=== PATIENT | female | born 1995 | race Asian ===

== ENCOUNTER 2021-01-16 01:21 | Emergency (ER) | payer OTHER, SELFPAY ==
[2021-01-16 01:26] VITALS: BP 116/62; PULSE 64; TEMP 36.8; O2SAT 98; BMI 25.3
[2021-01-16 01:56] VITALS: BP 104/57; PULSE 62; RESP 16
[2021-01-16] MEDS: Lidocaine HCl 2 % MPF 5 ML VIAL 10 ML INFILTRATI (01:56)
--- NOTE | 2021-01-16 01:56 | ED.EXTPRO ---
HPI - Extremity Problem General Chief complaint: Extremity Problem Stated complaint: Arm pain Time Seen by Provider: 01/16/21 01:32 Source: patient Mode of arrival: ambulatory Limitations: no limitations History of Present Illness HPI Narrative: Patient comes to the emergency room complaining of left upper arm pain. Patient states that she has localized itching and discomfort for the last 2 months where her Nexplanon was placed. Patient had inserted over 2 years ago. Patient states that she is new to the area, does not have a primary care physician or OBGYN, states she is working on getting an appointment, but has been told that she will not be seen until 2-3 months from now. Patient requesting to have her Nexplanon taken out. Patient denies arm swelling, no numbness or tingling, complaining of a pimple size lesion that has been draining pus Related Data Previous Rx's Medication Instructions Recorded ibuprofen 600 mg PO Q8H PRN #14 tab 01/16/21 levonorgestrel-ethinyl estrad 1 tab PO DAILY #84 tab 01/16/21 [Altavera (28)] sulfamethoxazole-trimethoprim 1 tab PO BID #14 tab 01/16/21 [Bactrim DS] Allergies Allergy/AdvReac Type Severity Reaction Status Date / Time No Known Allergies Allergy Verified 01/16/21 01:25 Review of Systems Review of Systems: Constitutional : No Weight loss, No Fever, No Chills, No Night Sweats, No Fatigue, No Malaise ENT/Mouth : No Hearing loss, No Ear Pain, No Nasal Congestion, No Sinus Pain, No Hoarseness, No sore throat, No Rhinorrhea, No Swallowing Difficulty Eyes: No Eye Pain, No Swelling, No Redness, No Foreign Body, No Discharge, No Vision Changes Cardiovascular : No Chest Pain, No SOB, No Dyspnea on Exertion, No Orthopnea, No Edema, No Palpitations Respiratory : No Cough, No Sputum, No Wheezing, No Smoke Exposure, No Dyspnea Gastrointestinal : No Nausea, No Vomiting, No Diarrhea, No Constipation, No abdominal Pain, No Hematochezia, No Melena Genitourinary : no irregular bleeding, No Dysuria, No Urinary Frequency, No Hematuria, No Urinary Incontinence, No Urgency, No Flank Pain, No Urinary Flow Changes, No Hesitancy Musculoskeletal : Discomfort and the Nexplanon implantation site on the left arm Skin : No Skin Lesions, No rash Neuro : No Weakness, No Numbness, No Paresthesias, No Loss of Consciousness, No Dizziness, No Headache Psych : No Anxiety/Panic, No Depression, No SI/HI/AH/VH, No Social Issues, Heme/Lymph: No Bruising, No Bleeding,No Lymphadenopathy Endocrine : No Polyuria, No Polydipsia, No Temperature Intolerance PMFSH Past Medical History Medical History No known health problems Social History Social History Advance Directives: No Advance Directives Information Provided: No Physical Exam Vital Signs: Vital Signs: Last Vital Signs Temp 98.2 F 01/16/21 01:26 Pulse 62 01/16/21 01:56 Resp 16 01/16/21 01:56 BP 104/57 L 01/16/21 01:56 Pulse Ox 98 01/16/21 01:26 Body Mass Index 25.3 Appearance: Alert. Oriented X3. No acute distress. Eyes: Pupils equal, round and reactive to light. ENT: Pharynx normal. Neck: Normal inspection. Neck supple. No lymph nodes noted. No crepitus CVS: Normal heart rate and rhythm. Pulses normal. Normal S1 and S2 Respiratory: No respiratory distress. Breath sounds normal. No Wheezing. No rales Abdomen: Soft and nontender. No rigidity. No distention. good BS x4 Skin: Skin warm and dry. Normal skin color. Normal skin turgor. Extremities: No lower extremity edema. Left upper arm has palpable Nexplanon, there is a small 2 mm sized lesion draining scant amount of pus Neuro: Oriented X 3. No motor deficit. No sensory deficit. Moving all extermities. No slurred speech. Course Course Course Narrative: I discussed with the patient that once the Nexplanon is off, she will need a different control form. Patient tolerated well the procedure. It seems that the site was starting to get infected, a small amount of pus was drained Oral control pills were sent to the patient's pharmacy, discussed with the patient that it will take 2 weeks for the control to start working. In the meantime she will need to use condom is sexually active to prevent . Procedures Procedure Narrative Procedure Narrative: Patient gave consent for the procedure. Patient was infiltrated with 10 mL of 2% lidocaine with no epinephrine. The Nexplanon tip was fairly deep, an L-shaped incision was done. Approximately 1 cm in size. It was difficult to pull the Nexplanon, very scant amount of pus came out from the superficial skin. Four stitches were applied. Patient's sutures need to be removed in 7-10 days Discharge Plan Discharge Clinical Impression: Nexplanon removal, Abscess Patient Disposition: Home, Self-Care Instructions: Abscess (ED), Removal of Control Implant (DC) Additional Instructions: The stitches need to be removed in 7-10 days. You can come to emergency room, urgent care, or with a new primary care physician. control pills per dispose you to blood clots, if you have any calf pain, chest pain, shortness of breath, please return to emergency room immediately. The pills take approximately 2 weeks to start working. In the meantime you will need barrier contraception such as condom. Please follow-up with your primary care physician tomorrow. If you have any worsening or new symptoms, please return to the emergency room or call 911 Prescriptions: New sulfamethoxazole-trimethoprim [Bactrim DS] 800-160 mg tablet 1 tab PO BID Qty: 14 RF: 0 ibuprofen 600 mg tablet 600 mg PO Q8H PRN (Reason: fever or pain) Qty: 14 RF: 0 levonorgestrel-ethinyl estrad [Altavera (28)] 0.15-0.03 mg tablet 1 tab PO DAILY Qty: 84 RF: 0
== END 2021-01-16 03:03 | disposition home or self-care (01) ==
PROVIDERS: Emergency Provider Emergency Medicine
DX: L02.414 Cutaneous abscess of left upper limb (principal); M79.602 Pain in left arm; Z30.49 Encounter for surveillance of other contraceptives
CPT/HCPCS: 11982; 99284

== ENCOUNTER 2021-01-24 13:27 | Emergency (ER) | payer OTHER, SELFPAY ==
[2021-01-24 13:36] VITALS: BP 109/64; PULSE 65; RESP 18; TEMP 36.4; O2SAT 98; BMI 25.7
--- NOTE | 2021-01-24 14:05 | ED.SKABFB ---
HPI - Skin/Abscess/Foreign Bdy General Chief complaint: Skin/Abscess/Foreign Body Stated complaint: suture removal Time Seen by Provider: 01/24/21 14:05 History of Present Illness HPI narrative: Patient presents for suture removal to left upper arm, denies any fever or chills, no pain denies any discharge from the wound Related Data Previous Rx's Medication Instructions Recorded ibuprofen 600 mg PO Q8H PRN #14 tab 01/16/21 levonorgestrel-ethinyl estrad 1 tab PO DAILY #84 tab 01/16/21 [Altavera (28)] sulfamethoxazole-trimethoprim 1 tab PO BID #14 tab 01/16/21 [Bactrim DS] Allergies Allergy/AdvReac Type Severity Reaction Status Date / Time No Known Allergies Allergy Verified 01/24/21 13:38 Review of Systems Review of Systems: No fever no chills no dizziness no weakness, denies any swelling denies redness or discharge denies any numbness weakness or tingling, no rash Yes all other systems are reviewed and are negative PMFSH Past Medical History Source: nursing notes reviewed Medical History No known health problems Social History Social History Advance Directives: No Advance Directives Information Provided: No Physical Exam Vital Signs: Vital Signs: Last Vital Signs Temp 97.6 F 01/24/21 13:36 Pulse 65 01/24/21 13:36 Resp 18 01/24/21 13:36 BP 109/64 01/24/21 13:36 Pulse Ox 98 01/24/21 13:36 Body Mass Index 25.7 General appearance com comfortable no acute distress A&O x3 Neck is supple Respiratory no distress Left upper arm has [address], there is no redness no swelling no discharge no tenderness no evidence of infection Neuro no focal motor or sensory deficits Course Course Course Narrative: One suture was removed from left upper arm, no wound dehiscence, no signs of any skin infection Discharge Plan Discharge Clinical Impression: Visit for suture removal Patient Disposition: Home, Self-Care Additional Instructions: Sutures removed No sign of any infection Okay for all activity Prescriptions: No Action sulfamethoxazole-trimethoprim [Bactrim DS] 800-160 mg tablet 1 tab PO BID Qty: 14 RF: 0 ibuprofen 600 mg tablet 600 mg PO Q8H PRN (Reason: fever or pain) Qty: 14 RF: 0 levonorgestrel-ethinyl estrad [Altavera (28)] 0.15-0.03 mg tablet 1 tab PO DAILY Qty: 84 RF: 0 Interventions: ED Discharge Assessment Last Done: 01/24/21 14:07 Discharge Date/Time: 01/24/21 14:08
== END 2021-01-24 14:08 | disposition home or self-care (01) ==
PROVIDERS: Emergency Provider Emergency Medicine
DX: Z48.02 Encounter for removal of sutures (principal); S41.112D Laceration without foreign body of left upper arm, subsequent encounter; X58.XXXD Exposure to other specified factors, subsequent encounter
CPT/HCPCS: 99283